=== PATIENT | male | born 1985 | race Caucasian/White ===

== ENCOUNTER 2017-03-29 16:52 | Emergency (ER) | payer OTHER ==
[2017-03-29 16:57] VITALS: BP 135/79; RESP 20; TEMP 97.7; O2SAT 98
[2017-03-29] MEDS ORDERED: LOMO2.5T PO (17:15)
[2017-03-29] MEDS ORDERED: ZOFR4TAB3 SL (17:15)
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
[2017-03-29 17:34] VITALS: PULSE 90
== END 2017-03-29 17:35 | disposition home or self-care (01) ==
LOC: PHED 16:52
DX: K52.9 Noninfective gastroenteritis and colitis, unspecified (principal)
CPT/HCPCS: 99284